=== PATIENT | male | born 1995 | race Caucasian/White ===

== ENCOUNTER 2018-06-04 13:08 | Emergency (ER) | payer OTHER, SELFPAY ==
[2018-06-04] MEDS ORDERED: HYDROcodone/Acetaminophen 10/325 mg Tablet ONE (13:42)
--- NOTE | 2018-06-04 13:58 | RAD ---
RIGHT KNEE 4 VIEWS: Date: 06/04/18 PROVIDED CLINICAL HISTORY: Right knee pain status post injury. FINDINGS: There is no evidence for fracture or other acute osseous abnormality. If there is persistent clinical concern, conservative management and follow-up imaging are advised. IMPRESSION: As above. POS: [facility]
--- NOTE | 2018-06-04 14:01 | RAD ---
RIGHT FEMUR 2 VIEWS: HISTORY: Trauma to thigh. FINDINGS: There are no signs of fracture or dislocation. IMPRESSION: Negative right femur. POS: [facility]
[2018-06-04] MEDS ORDERED: Ketorolac Tromethamine 30 MG/ML VIAL ONE (14:15)
== END 2018-06-04 15:47 | disposition home or self-care (01) ==
LOC: ERS 13:08
DX: S70.11XA Contusion of right thigh, initial encounter (principal); V23.4XXA Motorcycle driver injured in collision with car, pick-up truck or van in traffic accident, initial encounter
CPT/HCPCS: 96372; J1885

== ENCOUNTER 2019-07-28 17:59 | Emergency (ER) | payer OTHER | END 2019-07-28 18:33 | disposition home or self-care (01) | LOC: ERS 17:59 | DX: J02.9 Acute pharyngitis, unspecified (principal) | CPT/HCPCS: 99283 ==